=== PATIENT | female | born 1950 | race Caucasian/White ===

== ENCOUNTER → 2017-04-11 | Outpatient (CLI) | payer OTHER, MEDICARE, BC ==
[~2017-04-11] MED LIST: ALBUTEROL2.5 MG/0.5 INH; ASPIRIN LO-DOSE81 MG PO; BAYER BACK & B1 EACH PO; CRESTOR40 MG PO; CYMBALTA60 MG PO; DIOVAN80 MG PO; FISH OIL500 MG PO; KEFLEX500 MG PO; LASIX40 MG PO; LEVOTHYROXINE75 MCG PO; LOPRESSOR25 MG PO; NITROGLYCERIN0.4 MG SL; PROAIR HFA8.5 GM INH; SYMBICORT 16010.2 GM INH; ULORIC80 MG PO
== END | disposition disaster alternative care site (69) ==
LOC: GAMB 11:03
DX: R22.0 Localized swelling, mass and lump, head (principal); W10.1XXA Fall (on)(from) sidewalk curb, initial encounter
CPT/HCPCS: A0425; A0429